=== PATIENT | female | born 1995 | race Caucasian/White ===

== ENCOUNTER 2023-12-04 11:51 | Emergency (ER) | payer BC, SELFPAY ==
--- NOTE | ~2023-12-04 | US_ITS ---
EXAMINATION: US OB <= 14 weeks fetus INDICATION: lower abd pain, 8 weeks, N/V TECHNIQUE: Sonography of the pelvis was performed by transabdominal and transvaginal techniques. COMPARISON: None. RESULT: Uterus: 12.6 x 6.6 x 8.5 cm. Anteverted. Homogenous myometrium. Intrauterine gestational sac: Single present. Yolk sac: Present, 0.3 cm. Embryo: Single present. [place] rump length: 1.35 cm, corresponding gestational age 7 weeks, 4 days. Gestational heart rate: present 169 bpm. Subgestational hematoma: Absent . Right ovary: 2.6 x 1.0 x 1.9 cm. Vascular flow is present. No adnexal mass. Left ovary: 3.1 x 1.9 x 2.6 cm. Vascular flow is present. No adnexal mass. Pelvis free fluid: None. IMPRESSION: Single, live intrauterine gestation. Estimated Gestational Age: 7 weeks, 4 days by crown rump length. JEREMIAH by ultrasound 07/18/2024. Reviewed, dictated and finalized at location K. [employer] PAYABLE COORDINATOR IMPRESSION: Single, live intrauterine gestation. Estimated Gestational Age: 7 weeks, 4 days by crown rump length. JEREMIAH by ultras ound 07/18/2024.
[2023-12-04 12:14] VITALS: BP 110/71; PULSE 88; RESP 17; O2SAT 100
[2023-12-04 12:31] LABS: Basophils Percent Auto 0.3 % (0.2-1.2); Eosinophils Percent Auto 0.2 % (0-4.4); Hematocrit 39.3 % (37.0-47.0); Hemoglobin 13.4 g/dL (12.0-15.0); Immature Granulocyte Absolute 0.02 K/mm3 (0.00-0.031); Immature Granulocyte Percent A 0.2 % (0-0.5); Lymphocytes Absolute Auto 2.24 K/mm3 (0.9-3.2); Lymphocytes Percent Auto 21.6 % (18.3-44.2); Mean Corpuscular HGB Conc 34.1 g/dl (32-36); Mean Corpuscular Hemoglobin 29.9 pg (26-34); Mean Corpuscular Volume 87.7 fl (80-100); Mean Platelet Volume 9.8 fl (7.4-10.4); Monocytes Absolute Auto 0.5 K/mm3 (0.1-0.6); Monocytes Percent Auto 4.6 % (2.6-8.5); Neutrophils Absolute Auto 7.6 K/mm3 (1.3-6.7); Neutrophils Percent Auto 73.1 % (45.5-73.1); Platelet Count Result 285 k/mm3 (150-375); Red Blood Count 4.48 M/mm3 (4.2-5.4); Red Cell Distribution Width 11.8 % (11.5-14.5); White Blood Count 10.4 K/mm3 (4.5-10.0)
[2023-12-04 12:47] LABS: Alanine Aminotransferase 29 U/L (6-35); Albumin Level 4.1 g/dL (3.5-5.1); Alkaline Phosphatase 62 U/L (38-126); Anion Gap 9 mmol/L (8-16); Aspartate Amino Transferase 33 U/L (14-36); Bilirubin,Total 0.6 mg/dL (0.2-1.3); Blood Urea Nitrogen 7 mg/dL (7-17); Calcium 9.4 mg/dL (8.4-10.2); Carbon Dioxide 22 mmol/L (22-30); Chloride 105 mmol/L (98-107); Estimated CRCL calculation 131 ml/min; Estimated Glomerular Filt Rate > 60; Glucose 80 mg/dL (65-110); Potassium 3.8 mmol/L (3.4-5.0); Sodium 136 mmol/L (137-145)
[2023-12-04 13:18] LABS: Appearance Urine Cloudy (Clear); Bacteria Urine 2+ /hpf; Bilirubin Urine Negative (Negative); Blood Urine Negative (Negative); Color Urine Dark Yellow (Yellow); Glucose Urine UA Negative (Negative); Ketones Urine 4+ mg/dL (Negative); Leukocyte Esterase Ur 1+ LEU/UL (Negative); Mucus Urine Present /lpf; Need Manual Microscopic Reviewed; Nitrate Urine Negative (Negative); Protein Urine 1+ mg/dL (Negative); Specific Grav Ur 1.032 (1.001-1.035); Squamous Epithelial Cell Urine Few /hpf (Few); WBC Urine 21-50 /hpf; pH Urine 6.5 (5.0-9.0)
[2023-12-04 13:19] LABS: Add Urine Microscopic? YES
--- NOTE | 2023-12-04 13:30 | ED.NAVMDI ---
HPI - Nausea/Vomiting/Diarrhea General Chief complaint: Nausea/Vomiting/Diarrhea Stated complaint: 8 weeks /n/v Time Seen by Provider: 12/04/23 12:23 Source: patient Mode of arrival: ambulatory Limitations: no limitations History of Present Illness HPI Narrative: Patient is a 28-year-old female who presents the ED with report of nausea and vomiting. Patient is and currently approximately 8 weeks gestation. She has not had an ultrasound yet, but is scheduled to see Dr. Lyubov Hare on 12/15. She reports having persistent nausea and vomiting over the last 2 weeks, but states she has not been able to keep down much food or drink since Wednesday. Concerned she is dehydrated. Reports having lower abdominal cramping. Denies fevers, diarrhea, constipation, vaginal bleeding. Related Data Allergies Allergy/AdvReac Type Severity Reaction Status Date / Time amoxicillin Allergy Intermediate Rash Verified 02/10/22 10:46 Review of Systems Review of Systems: CONSTITUTIONAL: Denies fever, chills, or sweats. GASTROINTESTINAL: See HPI. GENITOURINARY: Denies vaginal bleeding, dysuria or hematuria. All systems reviewed & are unremarkable except as noted in HPI and below PMFSH Surgical History Surgical History [place] teeth removed Family History Family History Mother Depression Grandparent Cerebrovascular accident Heart disease Social History Social History Smoking status: Never smoker Exam Narrative: GENERAL: Well appearing, well-nourished, non-toxic, in no acute distress. HEAD: Normocephalic, atraumatic. RESPIRATORY: Airway patent, respirations nonlabored. Clear to auscultation bilaterally, no rales, rhonchi, wheezing. CARDIOVASCULAR: Regular rate and rhythm without murmurs, rubs, or gallops. ABDOMINAL: Soft, no significant tenderness throughout abdomen, nondistended. Normoactive BS. MUSCULOSKELETAL: Moves all extremities. No gross deformities. SKIN: Warm, dry, normal color. NEURO: A&O X3. Speech clear. Cranial nerves II-XII grossly intact. Steady gait. No ataxic movements. PSYCHIATRIC: Appropriate mood and affect. Normal interaction. Course Vital Signs Vital signs: Vital Signs Pulse Rate 88 12/04/23 12:14 Respiratory Rate 17 12/04/23 12:14 Blood Pressure 110/71 12/04/23 12:14 Pulse Oximetry 100 12/04/23 12:14 Oxygen Delivery Room Air 12/04/23 12:14 Pulse Rate 88 12/04/23 15:06 Respiratory Rate 18 12/04/23 15:06 Blood Pressure 110/64 12/04/23 15:06 Pulse Oximetry 100 12/04/23 15:06 Oxygen Delivery Room Air 12/04/23 12:14 MDM - Nausea/Vomiting/Diarrhea MDM Narrative Medical decision making narrative: Patient presented to ED currently 8 weeks gestation with persistent nausea and vomiting, difficulty keeping down food and drink. Vitals stable upon arrival. Patient in no acute distress. Laboratory studies showed leukocytosis of 10.4. Stable H&H. CMP unremarkable. Stable electrolytes. Urinalysis consistent with infection. Will treat and sent for culture. Given dose of ceftriaxone in the ED. 4+ ketones noted on urinalysis. Fluids ongoing. Beta quant today 319K. US obtained and showing live IUP at 7 weeks 4 days, good heart tones, no other abnormalities noted. Patient given 2L fluid in the ED, in addition to Reglan/benadryl/pepcid. On reeval, she is feeling much better with supportive therapy. Able to tolerate p.o. intake. Will be discharged at this time. Will send in for short course of Reglan, also discussed additional OTC therapies to try. Advised close follow-up with OBGYN. Given return precautions. She agrees with plan. Discharged in stable condition. Medical Records Attestation: I reviewed the patient's medical records. Lab Data Attestation: I
[2023-12-04] MEDS: SODIUM CHLORIDE 0.9% IV 1,000 ML 999 ML IV CONT ×2 (13:44)
[2023-12-04] MEDS: METOCLOPRAMIDE HCL INJ 10 MG/2 ML VIAL IV PUSH (13:44)
[2023-12-04] MEDS: FAMOTIDINE 20 MG/2 ML VIAL IV PUSH (13:44)
[2023-12-04] MEDS: diphenhydrAMINE HCl INJ 50 MG/ML VIAL 25 MG IV PUSH (13:44)
[2023-12-04 15:06] VITALS: BP 110/64; PULSE 88; RESP 18; O2SAT 100
== END 2023-12-04 16:59 | disposition home or self-care (01) ==
PROVIDERS: Emergency Medicine; Emergency Provider Physician Assistant; PCP Family Medicine
DX: O21.9 Vomiting of pregnancy, unspecified (principal); O23.41 Unspecified infection of urinary tract in pregnancy, first trimester; N39.0 Urinary tract infection, site not specified; Z3A.01 Less than 8 weeks gestation of pregnancy
CPT/HCPCS: 36415; 76801; 80053; 81001; 81025; 84702; 85025; 87086; 96361; 96365; 96375; 99284; 99291; J0696; J1200; J2765; J7030